=== PATIENT | male | born 1985 | race Caucasian/White ===

== ENCOUNTER → 2016-11-19 | Outpatient (CLI) | payer BC ==
[~2016-11-19] MED LIST: IOHEXOL 240 MG/ML 50ML VIAL. ONE; IOHEXOL 300 MG/ML 75 ML VIAL. IV ONE
--- NOTE | 2016-11-19 11:13 | RAD ---
CT abdomen/pelvis with contrast 11/19/2016 at 1014 hours. Indication: Right lower quadrant pain Comparison: None available Technique: Multiple axial CT images of the abdomen and pelvis were obtained after the intravenous administration of 75 mL's Omnipaque 300. Coronal and sagittal reformats are provided. Findings: Lung bases are clear. Heart size is within normal limits. Liver is normal. Spleen is normal in morphology, however is borderline in length measuring 15.1 cm. Bilateral adrenal glands, pancreas and kidneys are within normal limits. No hydronephrosis. No contour deforming renal mass. Gallbladder is present without adjacent inflammatory changes. Abdominal aorta is normal in course and caliber. No enlarged lymph nodes are identified in the abdomen or pelvis. Small and large bowel are normal in caliber. Appendix is dilated with associated wall thickening and periappendiceal inflammatory changes. Small volume free fluid is noted in the right lower quadrant. Findings are compatible with acute appendicitis. No free intraperitoneal air is identified. No periappendiceal abscess. Urinary bladder is within normal limits. No suspicious osseous lesions are identified. Impression: 1. Findings are compatible with acute appendicitis. No evidence for rupture or periappendiceal abscess. Small volume free fluid is noted in the right lower quadrant. 2. Mildly enlarged spleen measuring 15.1 cm in in AP dimension. PQRS Compliance Statement: One or more of the following individualized dose reduction techniques were utilized for this examination: 1. Automated exposure control 2. Adjustment of the mA and/or kV according to patient size 3. Use of iterative reconstruction technique
== END | disposition home or self-care (01) ==
LOC: CT 09:00
PROVIDERS: ATTEND Physician Assistant Medical
DX: K35.80 Unspecified acute appendicitis (principal); R16.1 Splenomegaly, not elsewhere classified
CPT/HCPCS: 74177; Q9966; Q9967